=== PATIENT | female | born 1970 | race Caucasian/White ===

== ENCOUNTER 2017-08-02 14:15 | Emergency (ER) | payer OTHER ==
[~2017-08-02 14:15] MED LIST: AMLO5TAB4 PO; HYDR12.58 PO; ORTHO
[2017-08-02 15:14] LABS: AMORPHOUS SEDIMENT,UR PRESENT /HPF; BACTERIA,URINE 0 /HPF (0-FEW); BILIRUBIN,URINE NEG (NEG); CLARITY,URINE CLOUDY; COLOR,URINE YELLOW; GLUCOSE,URINE NEG (NEG); NITRITE,URINE NEG (NEG); RBC,URINE 0 /HPF (0-2); SQUAMOUS EPITHELIAL CELL,UR OCC /LPF; WBC,URINE OCC /HPF (0-4)
[2017-08-02 15:31] LABS: U PREG PATIENT NEGATIVE (NEG)
[2017-08-02 15:32] LABS: UROBILINOGEN,URINE 1 mg/dL (0.2 mg/dL)
--- NOTE | 2017-08-02 16:16 | PHYS DOC ---
Past History Past Medical History: Hypertension Past Surgical History: No Surgical History Alcohol Use: None Drug Use: None Adult General Chief Complaint Chief Complaint: ABDOMINAL PAIN [facility] HPI 47-year-old female patient complaining of right upper quadrant pain with radiation to her back and flank for one month that getting worse at night as a pressure pain without nausea, vomiting, diarrhea, constipation and urinary symptom. Patient denies vaginal bleeding or discharge and fever and chills. Patient states the pain getting worse for the last few days and rated her pain 7 /10. Patient states she was diagnosed with spinal cord hemangioma and seen by neurosurgeon at [facility] and referred to [facility] and waiting for her appointment and thinks her pain is related to her back problem. She denies focal neurodeficit and urinary and bowel incontinence. Review of Systems Review of Systems Constitutional: Denies fever or chills [] Eyes: Denies change in visual acuity, redness, or eye pain [] HENT: Denies nasal congestion or sore throat [] Respiratory: Denies cough or shortness of breath [] Cardiovascular: No additional information not addressed in HPI [] GI: Denies nausea, vomiting, bloody stools or diarrhea , reports abdominal pain [] : Denies dysuria or hematuria [] Musculoskeletal: Denies joint pain [] Integument: Denies rash or skin lesions [] Neurologic: Denies headache, focal weakness or sensory changes [] Endocrine: Denies polyuria or polydipsia [] All other systems were reviewed and found to be within normal limits, except as documented in this note. Allergies Allergies Allergies Coded Allergies Type Severity Reaction Last Updated Verified No Known Drug Allergies 05/21/15 No Physical Exam Physical Exam Constitutional: Well developed, well nourished, mild distress, non-toxic appearance. [] HENT: Normocephalic, atraumatic, bilateral external ears normal, oropharynx moist, no oral exudates, nose normal. [] Eyes: PERRLA, EOMI, conjunctiva normal, no discharge. [] Neck: Normal range of motion, no tenderness, supple, no stridor. [] Cardiovascular:Heart rate regular rhythm, no murmur [] Lungs & Thorax: Bilateral breath sounds clear to auscultation [] Abdomen: Bowel sounds normal, soft, no tenderness, no masses, no pulsatile masses. [] Skin: Warm, dry, no erythema, no rash. [] Back: No tenderness, no CVA tenderness. [] Extremities: No tenderness, no cyanosis, no clubbing, ROM intact, no edema. [] Neurologic: Alert and oriented X 3, normal motor function, normal sensory function, no focal deficits noted. [] Psychologic: Affect normal, judgement normal, mood normal. [] Current Patient Data Lab Results Laboratory Tests Test 08/02/17 14:35 Urine Collection Type Unknown Urine Color Yellow Urine Clarity Cloudy Urine pH 7.0 Urine Specific [place] 1.020 Urine Protein Neg (NEG-TRACE) Urine Glucose (UA) Neg mg/dL (NEG) Urine Ketones (Stick) Neg mg/dL (NEG) Urine Blood Neg (NEG) Urine Nitrite Neg (NEG) Urine Bilirubin Neg (NEG) Urine Urobilinogen Dipstick 1 mg/dL (0.2 mg/dL) Urine Leukocyte Esterase Neg (NEG) Urine RBC 0 /HPF (0-2) Urine WBC Occ /HPF (0-4) Urine Squamous Epithelial Cells Occ /LPF Urine Amorphous Sediment Present /HPF Urine Bacteria 0 /HPF (0-FEW) Urine Test Negative (NEG) EKG EKG [] Radiology/Procedures Radiology/Procedures [] Course & Med Decision Making Course & Med Decision Making Pertinent Labs and Imaging studies reviewed. (See chart for details) Evaluation of patient in ER showed 47-year-old female patient with chronic abdominal and flank pain for 1 month. Patient had unremarkable physical exam, UA and gallbladder ultrasound. Patient has appointment with hogs[facility] stock clerk regarding spinal cord hemangioma and instructed to follow-up with her physician and take pain medication as needed. Prescription for also was given. [] Dragon Disclaimer Dragon Disclaimer This electronic medical record was generated, in whole or in part, using a voice recognition dictation system. Departure Departure: Impression: Primary Impression: Abdominal pain Disposition: 01 HOME, SELF-CARE (At 1728) Condition: STABLE Referrals: GLENNY AGUILAR MD (PCP) Patient Instructions: Abdominal Pain Additional Instructions: Follow-up with your physician in 2 or 3 days Plan ice on the affected area Scripts Tramadol Hcl (ULTRAM) 50 Mg Tablet 50 MG PO PRN Q6HRS Y for PAIN, #20 TAB Prov: FLORESITA TOUSSAINT MD 08/02/17 FLORESITA TOUSSAINT MD Aug 02, 2017 16:16
--- NOTE | 2017-08-02 17:18 | RAD ---
INDICATION : [id number] RUQ pain x's couple of days COMPARISON: None TECHNIQUE: Multiple ultrasound images obtained through the abdomen in grayscale and color. FINDINGS: Liver: Echotexture within normal limits in visualized portions of liver. Gallbladder: No wall thickening or stones. IVC: Partially distended at level of liver. Common Bile Duct: Not dilated. Pancreas: Difficult visualization. Unremarkable in visualized portion. Right Kidney: No hydronephrosis. IMPRESSION: 1. No definite bile duct dilation or gallstones. Electronically signed by: Baljinder Daly MD (08/02/2017 5:15 PM) [id number]
[2017-08-02] MEDS ORDERED: TRAM-48 PO (17:30)
[2017-08-02 17:35] VITALS: BP 141/86
== END 2017-08-02 17:35 | disposition home or self-care (01) ==
LOC: ER 14:15
DX: R10.11 Right upper quadrant pain (principal); I10 Essential (primary) hypertension
CPT/HCPCS: 76705; 81001; 81025; 99285-25